=== PATIENT | female | born 1985 | race Caucasian/White ===

== ENCOUNTER 2022-03-27 07:29 | Emergency (ER) | payer BC ==
[2022-03-27] MEDS ORDERED: Lidocaine 1% 5 ML VIAL INJECT ONE (07:49)
[2022-03-27] MEDS ORDERED: Diphtheria,Pertussis(Acell),Tetanus Vaccine 0.5 ML Syringe IM ONE (07:50)
== END 2022-03-27 08:40 | disposition home or self-care (01) ==
LOC: MW.ED 07:29
DX: S61.211A Laceration without foreign body of left index finger without damage to nail, initial encounter (principal); Z23 Encounter for immunization; W26.8XXA Contact with other sharp object(s), not elsewhere classified, initial encounter
CPT/HCPCS: 12001; 90471; 90715; 99282; 99283-25

== ENCOUNTER 2022-10-12 15:09 | Emergency (ER) | payer BC ==
[2022-10-12] MEDS ORDERED: Acetaminophen/HYDROcodone 325-5 MG Tab PO ONE (16:33)
== END 2022-10-12 16:48 | disposition home or self-care (01) ==
LOC: MW.ED 15:09
DX: H66.93 Otitis media, unspecified, bilateral (principal); Z88.8 Allergy status to other drugs, medicaments and biological substances
CPT/HCPCS: 99282; A9270